=== PATIENT | female | born 2000 | race African-American/Black ===

== ENCOUNTER 2018-06-04 19:39 | Emergency (ER) | payer OTHER ==
[2018-06-04 20:41] LABS: ABS Basophils 0.1 10^3/ul (0-0.2); ABS Eosinophils 0.1 10^3/ul (0-0.6); ABS Lymphocytes 2.7 10^3/ul (1.0-4.8); ABS Monocytes 0.4 10^3/ul (0-0.8); ABS Neutrophils 7.9 10^3/ul (1.5-7.7); ABS Nucleated RBC 0 10^3/ul; Eosinophil % 0.8 % (0-6); Hematocrit 40 % (35-47); Hemoglobin 13.3 g/dl (12.0-16.0); Lymphocyte % 23.8 % (25-47); Mean Corpuscular HGB Conc 34 g/dl (31-36); Mean Corpuscular Hemoglobin 29 pg (27-31); Mean Corpuscular Volume 87 fL (80-97); Mean Platelet Volume 9.7 um3 (7.4-10.4); Nucleated Red Blood Cells % 0; Platelet Count 217 10^3/ul (150-450); Red Blood Count 4.56 10^6/ul (4.00-5.40); Red Cell Distribution Width 14 % (10.5-15); White Blood Count 11.2 10^3/ul (3.5-10.8)
[2018-06-04 20:59] LABS: EGFR Non-African American 76.7 (>60)
[2018-06-05 00:47] LABS: Urine Appearance Cloudy; Urine Blood 1+ (Negative); Urine Color Yellow; Urine Ketones Negative (Negative); Urine Protein Negative (Negative); Urine Red Blood Cell 1+(3-5/hpf) (Absent); Urine Specific Gravity 1.032 (1.010-1.030); Urine Urobilinogen Negative (Negative); Urine White Blood Cell 2+(11-20/hpf) (Absent)
--- NOTE | 2018-06-05 00:54 | ED ---
Abdominal Pain/Female - HPI Summary HPI Summary: Patient complains of intermittent right side and periumbilical abdominal pain 2 months with associated intermittent nausea. Pain is worse with standing up, improved with eating. Denies fever, cough, sore throat, CP, SOB, V/D, change in urine or BM, vaginal symptoms. Medical history is none. Abdominal/pelvic surgical history is none. Patient wants to know if she is as she has not had her menstrual period for 3 months, when she normally has regular periods. Denies history of ovarian cysts. - History of Current Complaint Chief Complaint: EDAbdPain Stated Complaint: ABD PAIN Time Seen by Provider: 06/04/18 23:46 Hx Obtained From: Patient Hx Last Menstrual Period: BEGINNING NOV Onset/Duration: Gradual Onset, Lasting Weeks Timing: Intermittent Episode Lasting Severity Initially: Mild Severity Currently: None Pain Intensity: 10 Pain Scale Used: 0-10 Numeric Location: Diffuse Radiates: No Character: Cramping Aggravating Factor(s): Movement Alleviating Factor(s): Other: - eating Associated Signs and Symptoms: Positive: Nausea Allergies/Adverse Reactions: Allergies Allergy/AdvReac Type Severity Reaction Status Date / Time No Known Allergies Allergy Verified 06/04/18 19:41 PMH/Surg Hx/FS Hx/Imm Hx Endocrine/Hematology History: Denies: Hx Anticoagulant Therapy Respiratory History: Denies: Hx Lung Cancer History: Denies: Hx Dialysis Neurological History: Denies: Hx CVA Infectious Disease History: No Infectious Disease History: Denies: Traveled Outside the [place] in Last 30 Days - Family History Known Family History: Positive: None, Respiratory Disease - family - Social History Alcohol Use: None Substance Use Type: Reports: None Smoking Status (MU): Never Smoked Tobacco Have You Smoked in the Last Year: No Review of Systems Constitutional: Negative Eyes: Negative ENT: Negative Cardiovascular: Negative Respiratory: Negative Positive: Abdominal Pain, Nausea Genitourinary: Negative Musculoskeletal: Negative Skin: Negative Neurological: Negative Psychological: Normal All Other Systems Reviewed And Are Negative: Yes Physical Exam - Summary Physical Exam Summary: Abdomen tender to palpation in periumbilical area and right upper quadrant. No tenderness to palpation in right lower quadrant or left lower quadrant or suprapubically. Triage Information Reviewed: Yes Vital Signs On Initial Exam: Initial Vitals Temp Pulse Resp BP Pulse Ox 99 F 96 15 117/84 100 06/04/18 19:41 06/04/18 19:41 06/04/18 19:41 06/04/18 19:41 06/04/18 19:41 Vital Signs Reviewed: Yes Appearance: Positive: Well-Appearing Skin: Positive: Warm Head/Face: Positive: Normal Head/Face Inspection Eyes: Positive: Normal Neck: Positive: Supple Respiratory/Lung Sounds: Positive: Clear to Auscultation Cardiovascular: Positive: Normal Abdomen Description: Positive: Soft. Negative: Distended, Guarding, [place]'s Point Tenderness, Peritoneal Signs Musculoskeletal: Positive: Normal Neurological: Positive: Normal Psychiatric: Positive: Normal AVPU Assessment: Alert - Sparks Coma Scale Best Eye Response: 4 - Spontaneous Best Motor Response: 6 - Obeys Commands Best Verbal Response: 5 - Oriented Coma Scale Total: 15 Diagnostics - Vital Signs Vital Signs Temp Pulse Resp BP Pulse Ox 06/04/18 21:58 98.5 F 68 15 119/74 100 06/04/18 19:41 99 F 96 15 117/84 100 - Laboratory Lab Results: Lab Results 06/04/18 06/04/18 06/04/18 Range/Units 20:32 20:32 23:56 WBC 11.2 H (3.5-10.8) 10^3/ul RBC 4.56 (4.00-5.40) 10^6/ul Hgb 13.3 (12.0-16.0) g/dl Hct 40 (35-47) % MCV 87 (80-97) fL MCH 29 (27-31) pg MCHC 34 (31-36) g/dl RDW 14 (10.5-15) % Plt Count 217 (150-450) 10^3/ul MPV 9.7 (7.4-10.4) um3 Neut % (Auto) 70.8 (38-83) % Lymph % (Auto) 23.8 L (25-47) % Hardy % (Auto) 3.9 (0-7) % Eos % (Auto) 0.8 (0-6) % Baso % (Auto) 0.7 (0-2) % Absolute Neuts (auto) 7.9 H (1.5-7.7) 10^3/ul Absolute Lymphs (auto) 2.7 (1.0-4.8) 10^3/ul Absolute Monos (auto) 0.4 (0-0.8) 10^3/ul Absolute Eos (auto) 0.1 (0-0.6) 10^3/ul Absolute Basos (auto) 0.1 (0-0.2) 10^3/ul Absolute Nucleated RBC 0 10^3/ul Nucleated RBC % 0 Sodium 140 (135-145) mmol/L Potassium 4.3 (3.5-5.0) mmol/L Chloride 107 (101-111) mmol/L Carbon Dioxide 26 (22-32) mmol/L Anion Gap 7 (2-11) mmol/L BUN 19 (6-24) mg/dL Creatinine 0.94 (0.51-0.95) mg/dL Est GFR ( Amer) 92.8 (>60) Est GFR (Non-Af Amer) 76.7 (>60) BUN/Creatinine Ratio 20.2 H (8-20) Glucose 99 (70-100) mg/dL Calcium 9.3 (8.6-10.3) mg/dL Total Bilirubin 0.30 (0.2-1.0) mg/dL AST 15 (13-39) U/L ALT 10 (7-52) U/L Alkaline Phosphatase 73 (34-104) U/L Total Protein 7.1 (6.4-8.9) g/dL Albumin 4.6 (3.2-5.2) g/dL Globulin 2.5 (2-4) g/dL Albumin/Globulin Ratio 1.8 (1-3) Beta HCG, Quant < 0.60 mIU/mL Urine Color Yellow Urine Appearance Cloudy Urine pH 5.0 (5-9) Ur Specific [place] 1.032 H (1.010-1.030) Urine Protein Negative (Negative) Urine Ketones Negative (Negative) Urine Blood 1+ A (Negative) Urine Nitrate Negative (Negative) Urine Bilirubin Negative (Negative) Urine Urobilinogen Negative (Negative) Ur Leukocyte Esterase 2+ A (Negative) Urine WBC (Auto) 2+(11-20/hpf) A (Absent) Urine RBC (Auto) 1+(3-5/hpf) A (Absent) Ur Squamous Epith Cells Present A (Absent) Urine Bacteria Absent (Absent) Urine Glucose Negative (Negative) Result Diagrams: 06/04/18 20:32 06/04/18 20:32 Lab Statement: Any lab studies that have been ordered have been reviewed, and results considered in the medical decision making process. Abdominal Pain Fem Course/Dx - Course Course Of Treatment: Patient complains of intermittent right side and periumbilical abdominal pain 2 months with associated intermittent nausea. Pain is worse with standing up, improved with eating. Denies fever, cough, sore throat, CP, SOB, V/D, change in urine or BM, vaginal symptoms. Medical history is none. Abdominal/pelvic surgical history is none. Patient wants to know if she is as she has not had her menstrual period for 3 months, when she normally has regular periods. Denies history of ovarian cysts. PE: Abdomen tender to palpation in periumbilical area and right upper quadrant. No tenderness to palpation in right lower quadrant or left lower quadrant or suprapubically. Vital signs normal and stable. White count 11.2, otherwise labs unremarkable. No active abdominal pain here in the ED. No menstrual period for 3 months. Advised follow up with [employer]ER patient understands improves her plan. UTI. Rx for Bactrim and started on Bactrim 1 tab here in the ED - Diagnoses Provider Diagnoses: Irregular menstrual cycle, Pain in the abdomen, UTI (urinary tract infection) Discharge - Sign-Out/Discharge Documenting (check all that apply): Patient Departure - Discharge Plan Condition: Stable Disposition: HOME Patient Education Materials: Abdominal Pain (ED) Referrals: Daja Rodriguez MD [Primary Care Provider] - Additional Instructions: Follow-up with your [employer]ACHINE [employer] T[employer]ER for irregular menstrual cycle and abdominal pain. Return to the ED for any new or worsening symptoms - Billing Disposition and Condition Condition: STABLE Disposition: Home
[2018-06-05] MEDS ORDERED: Sulfamethox/Trimethoprim DS 800/160* TAB PO ONE (01:05)
[2018-06-05 01:35] VITALS: BP 138/89
== END 2018-06-05 01:35 | disposition home or self-care (01) ==
LOC: ED 19:39
DX: N92.6 Irregular menstruation, unspecified (principal); R10.33 Periumbilical pain; N39.0 Urinary tract infection, site not specified
CPT/HCPCS: 36415; 80053; 81003; 81015; 84702; 85025; 87086; 99282; A9270-GY

== ENCOUNTER 2018-06-24 21:29 | Emergency (ER) | payer OTHER ==
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
[2018-06-24] MEDS ORDERED: NS 0.9% 1000 ML* 1,000 ML IV ONE (21:59)
[2018-06-24 22:10] LABS: ABS Basophils 0.1 10^3/ul (0-0.2); ABS Eosinophils 0.1 10^3/ul (0-0.6); ABS Lymphocytes 3.9 10^3/ul (1.0-4.8); ABS Monocytes 0.6 10^3/ul (0-0.8); ABS Neutrophils 7.4 10^3/ul (1.5-7.7); ABS Nucleated RBC 0 10^3/ul; Eosinophil % 1.2 % (0-6); Hematocrit 43 % (35-47); Lymphocyte % 32.2 % (25-47); Mean Corpuscular HGB Conc 33 g/dl (31-36); Mean Corpuscular Hemoglobin 29 pg (27-31); Mean Corpuscular Volume 88 fL (80-97); Mean Platelet Volume 9.6 um3 (7.4-10.4); Nucleated Red Blood Cells % 0; Platelet Count 224 10^3/ul (150-450); Red Blood Count 4.86 10^6/ul (4.00-5.40); Red Cell Distribution Width 14 % (10.5-15); White Blood Count 12.2 10^3/ul (3.5-10.8)
[2018-06-24 22:12] LABS: Urine Appearance Clear; Urine Blood 1+ (Negative); Urine Color Straw; Urine Ketones Negative (Negative); Urine Protein Negative (Negative); Urine Red Blood Cell Trace(0-2/hpf) (Absent); Urine Specific Gravity 1.011 (1.010-1.030); Urine Urobilinogen Negative (Negative); Urine White Blood Cell Trace(0-5/hpf) (Absent)
[2018-06-24 22:18] LABS: INR 0.98 (0.77-1.02)
[2018-06-24 22:28] LABS: EGFR Non-African American 76.7 (>60)
[2018-06-24] MEDS ORDERED: Ketorolac INJ* 30 MG/ML 1 ML VIAL IV PUSH ONE (23:31)
[2018-06-24 23:48] VITALS: BP 132/74
--- NOTE | 2018-06-25 07:36 | RAD ---
INDICATION: Left lower quadrant pain. COMPARISON: There are no prior studies available for comparison. TECHNIQUE: Multiple real-time transvaginal images of the pelvis were obtained. FINDINGS: The uterus is normal in size, shape and echogenicity. The uterus measured 7.7 x 3.1 x 4.6 cm. The endometrial echo measured 1.0 cm in thickness. The right ovary measured 4.2 x 2.2 x 2.1 cm. The left ovary measured 3.9 x 1.4 x 1.7 cm. There is vascular flow within both ovaries. No free intraperitoneal fluid is seen. IMPRESSION: NEGATIVE EXAM, NO EVIDENCE FOR OVARIAN TORSION.
== END 2018-06-24 23:47 | disposition home or self-care (01) ==
LOC: ED 21:29
DX: R10.32 Left lower quadrant pain (principal); F41.9 Anxiety disorder, unspecified
CPT/HCPCS: 36415; 76830; 80053; 81003; 81015; 83605; 83690; 83735; 84702; 85025; 85610; 86140; 87077; 87086; 87480; 87491; 87510; 87591; 87661; 96374; 99283

== ENCOUNTER 2019-11-21 01:43 | Emergency (ER) | payer OTHER ==
[2019-11-21 02:06] LABS: ABS Lymphocytes 2.4 10^3/ul (1.0-4.8); ABS Monocytes 0.5 10^3/ul (0-0.8); ABS Neutrophils 4.1 10^3/ul (1.5-7.7); Eosinophil % 0.2 %; Hematocrit 38 % (35-47); Hemoglobin 12.8 g/dL (12.0-16.0); Lymphocyte % 33.9 %; Mean Corpuscular HGB Conc 33 g/dL (31-36); Mean Corpuscular Hemoglobin 29 pg (27-31); Mean Corpuscular Volume 86 fL (80-97); Platelet Count 182 10^3/uL (150-450); Red Blood Count 4.48 10^6 /uL (3.70-4.87); Red Cell Distribution Width 14 % (10-15)
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
[2019-11-21] MEDS ORDERED: Morphine 4 MG/ML VIAL (1 ml) 4 MG/ML VIAL IM ONE (02:14)
[2019-11-21 02:23] LABS: ALT 12 U/L (7-52); AST 15 U/L (13-39); Albumin 4.7 g/dL (3.2-5.2); Albumin/Globulin Ratio 1.9 (1-3); Alkaline Phosphatase 70 U/L (34-104); Anion Gap 9 mmol/L (2-11); BUN/Creatinine Ratio 11.9 (8-20); Blood Urea Nitrogen 10 mg/dL (6-24); C Reactive Protein < 1.00 mg/L (<8.01); CO2 Carbon Dioxide 24 mmol/L (22-32); Calcium 9.3 mg/dL (8.6-10.3); Chloride 105 mmol/L (101-111); EGFR African American 103.6 (>60); EGFR Non-African American 85.6 (>60); Globulin 2.5 g/dL (2-4); Glucose 82 mg/dL (70-100); Potassium 3.7 mmol/L (3.5-5.0); Sodium 138 mmol/L (135-145); Total Protein 7.2 g/dL (6.4-8.9)
[2019-11-21 02:29] LABS: HCG Pregnancy < 0.60 mIU/mL
[2019-11-21 02:58] LABS: Urine Appearance Cloudy; Urine Bilirubin Negative (Negative); Urine Blood Negative (Negative); Urine Color Yellow; Urine Glucose Negative (Negative); Urine Ketones 2+ (Negative); Urine Nitrite Negative (Negative); Urine Protein Negative (Negative); Urine Specific Gravity 1.015 (1.010-1.030); Urine Urobilinogen Negative (Negative)
[2019-11-21 02:59] LABS: Urine Bacteria Absent (Absent); Urine Red Blood Cell Trace(0-2/hpf) (Absent); Urine Squamous Epithelial Cell Present (Absent); Urine White Blood Cell Trace(0-5/hpf) (Absent)
[2019-11-21] MEDS ORDERED: cefTRIAXone VIAL(*) 250 MG VIAL IM ONE (04:34)
[2019-11-21] MEDS ORDERED: Lidocaine 1% MPF ** 5 ML VIAL IM ONE (04:34)
[2019-11-21] MEDS ORDERED: DOXYcycline CAP(*) 100 MG PO ONE (04:35)
[2019-11-21 05:44] VITALS: BP 143/100
[2019-11-21 13:49] LABS: Chlamydia trachomatis NAA Positive (Negative); Neisseria gonorrhoeae (GC) NAA Negative (Negative)
--- NOTE | 2019-11-21 16:37 | ED ---
Imaging and Labs Follow Up Follow Up Type: Labs/Cultures Labs/Culture Result: MELYSSA limited her culture obtained during last visit returned positive for chlamydia Patient Communication/Plan: Patient was called at 1634 this date and informed of positive chlamydia results. She was told to finish her doxycycline and to refrain from sexual intercourse for one week after completing antibiotic therapy. She is also urged to have her sexual partners tested for possible chlamydia as well. Patient had no questions and agreed with this plan. Pt treated appropriately. Provider Diagnoses: PID (pelvic inflammatory disease)
== END 2019-11-21 05:10 | disposition home or self-care (01) ==
LOC: ED 01:43
DX: N73.9 Female pelvic inflammatory disease, unspecified (principal); Z88.0 Allergy status to penicillin; F17.200 Nicotine dependence, unspecified, uncomplicated
CPT/HCPCS: 36415; 80053; 81003; 81015; 83690; 84702; 85025; 86140; 87086; 87491; 87591; 96372; 99283; A9270-GY; J0696; J2270

== ENCOUNTER 2021-05-16 16:20 | Inpatient (IN) ==
[2021-05-16] MEDS: NS 0.9% 1000 ml BAG 1,000 ML IV ONE ×2 (16:49→17:26)
[2021-05-16 17:10] LABS: ALT 14 U/L (7-52); AST 24 U/L (13-39); Albumin 3.3 g/dL (3.2-5.2); Albumin/Globulin Ratio 0.9 (1-3); Alkaline Phosphatase 148 U/L (35-149); Anion Gap 12 mmol/L (2-11); Blood Urea Nitrogen 15 mg/dL (6-24); CO2 Carbon Dioxide 20 mmol/L (22-32); Calcium 8.6 mg/dL (8.6-10.3); Chloride 98 mmol/L (101-111); EGFR African American 84.9 (>60); EGFR Non-African American 70.1 (>60); Globulin 3.6 g/dL (2-4); Glucose 140 mg/dL (70-100); Sodium 130 mmol/L (135-145); Total Protein 6.9 g/dL (6.4-8.9)
[2021-05-16 17:11] LABS: Hematocrit 41 % (35-47); Hemoglobin 13.8 g/dL (12.0-16.0); Mean Corpuscular HGB Conc 34 g/dL (31-36); Mean Corpuscular Hemoglobin 28 pg (27-31); Mean Corpuscular Volume 85 fL (80-97); Red Blood Count 4.86 10^6 /uL (3.70-4.87); Red Cell Distribution Width 15 % (10-15); White Blood Count 21.4 10^3/uL (3.5-10.8)
[2021-05-16 17:13] LABS: HCG Pregnancy < 0.60 mIU/mL
[2021-05-16 17:25] LABS: ABS Lymphocytes 0.8 10^3/ul (1.0-4.8); ABS Monocytes 1.2 10^3/ul (0-0.8); ABS Neutrophils 19.4 10^3/ul (1.5-7.7); Lymphocyte % 3.8 %; Mean Platelet Volume 11.2 fL (7.4-10.4); Platelet Count 98 10^3/uL (150-450)
[2021-05-16] MEDS ORDERED: Potassium Chlor 20 meq TAB.ER PO ONE (17:30)
[2021-05-16] MEDS ORDERED: NS 0.9% 1000 ml BAG 1,000 ML IV ONE ×3 (17:35→22:10)
[2021-05-16 19:18] LABS: Troponin I 0.02 ng/mL (<0.03)
[2021-05-16 19:19] LABS: Urine Benzodiazepine Screen None Detected (None Detect); Urine Cannabinoids Screen Presumptive Positive (None Detect); Urine Opiates Screen None Detected (None Detect)
[2021-05-16 20:57] LABS: Free T4 0.76 ng/dL (0.61-1.12)
[2021-05-16 21:08] LABS: Urine Appearance Cloudy; Urine Bilirubin Negative (Negative); Urine Blood 3+ (Negative); Urine Color Amber; Urine Glucose Negative (Negative); Urine Ketones Negative (Negative); Urine Nitrite Negative (Negative); Urine Protein 2+(100 mg/dL) (Negative); Urine Specific Gravity 1.018 (1.002-1.030); Urine Urobilinogen Positive (Negative)
[2021-05-16 21:13] LABS: Urine Bacteria 1+ (Absent); Urine Red Blood Cell 3+(>10/hpf) (Absent); Urine Squamous Epithelial Cell Present (Absent); Urine White Blood Cell 2+(11-20/hpf) (Absent)
[2021-05-16] MEDS ORDERED: Diltiazem IV push/loading dose 5 MG/ML 5 ML vial (25 mg) IV SLOW PU ONE (21:18)
[2021-05-16] MEDS ORDERED: Levofloxacin 500 MG IVPREMIX 500 MG/100 ML BAG IV ONE (21:19)
[2021-05-16] MEDS ORDERED: Magnesium Sulfate IV 1GM/100ML 1 GM/100 ML BAG IV ONE (22:07)
[2021-05-16] MEDS ORDERED: Enoxaparin 40 MG/0.4 ML SYR SUBCUT SCH (23:00)
[2021-05-16] MEDS ORDERED: NS 0.9% 1000 ml BAG 1,000 ML IV SCH (23:00)
[2021-05-16] MEDS ORDERED: Iohexol 350 (CONTRAST) 500 ML MDV IV ONE (23:48)
[2021-05-17] MEDS ORDERED: Vancomycin 1,000 MG in NS 0.9% 250 ml 250 ML IVPB ONE (00:58)
[2021-05-17] MEDS ORDERED: Vancomycin per Pharmacy 1 EA NOTE FOLLOW UP SCH (01:00)
[2021-05-17] MEDS ORDERED: Vancomycin 1,250 MG in NS 0.9% 250 ml 250 ML IVPB ONE (01:14)
[2021-05-17] MEDS ORDERED: cefTRIAXone 1 gm/50 mL NS BAG 1 GM/50 ML BAG IVPB SCH (02:00)
[2021-05-17] MEDS ORDERED: DOXYcycline 100 MG in NS 0.9% 250 ml 250 ML IVPB SCH (02:30)
[2021-05-17 02:55] LABS: C Reactive Protein 261.28 mg/L (<8.01)
[2021-05-17 05:38] LABS: ABS Lymphocytes 0.8 10^3/ul (1.0-4.8); ABS Monocytes 1.1 10^3/ul (0-0.8); ABS Neutrophils 11.1 10^3/ul (1.5-7.7); Eosinophil % 0.3 %; Hematocrit 31 % (35-47); Hemoglobin 10.7 g/dL (12.0-16.0); Lymphocyte % 6.1 %; Mean Corpuscular HGB Conc 35 g/dL (31-36); Mean Corpuscular Hemoglobin 29 pg (27-31); Mean Corpuscular Volume 85 fL (80-97); Mean Platelet Volume 10.5 fL (7.4-10.4); Platelet Count 56 10^3/uL (150-450); Red Blood Count 3.64 10^6 /uL (3.70-4.87); Red Cell Distribution Width 15 % (10-15); White Blood Count 13.1 10^3/uL (3.5-10.8)
[2021-05-17 05:42] LABS: Calcium 7.4 mg/dL (8.6-10.3); Potassium 3.1 mmol/L (3.5-5.0)
[2021-05-17] MEDS ORDERED: Potassium Chlor 20 meq TAB.ER PO ONE (06:04)
[2021-05-17] MEDS: KCL 20 MEQ/100 ML IVPREMIX 20 MEQ/100 ML BAG IV SCH ×2 (07:37→10:28)
[2021-05-17 08:50] LABS: Activated Partial Thrombo Time 45.9 seconds (26.0-38.0); INR 4.98 (0.82-1.09)
[2021-05-17 10:25] LABS: Schistocytes ABSENT
[2021-05-17 10:27] LABS: Platelet Count 56 10^3/ul (150-450)
[2021-05-17] MEDS ORDERED: Vancomycin 1000 MG in NS 0.9% 250 ML IVPB SCH (10:30)
[2021-05-17 10:44] LABS: Activated Partial Thrombo Time 46.3 seconds (26.0-38.0); Fibrinogen 567.8 mg/dL (110.8-404.3); INR 4.53 (0.82-1.09)
[2021-05-17 15:44] LABS: ABS Basophils 0.1 10^3/ul (0-0.2); ABS Eosinophils 0.1 10^3/ul (0-0.6); ABS Lymphocytes 0.8 10^3/ul (1.0-4.8); ABS Monocytes 1.1 10^3/ul (0-0.8); ABS Neutrophils 13.6 10^3/ul (1.5-7.7); Eosinophil % 0.7 %; Hematocrit 33 % (35-47); Hemoglobin 10.9 g/dL (12.0-16.0); Lymphocyte % 4.8 %; Mean Corpuscular HGB Conc 33 g/dL (31-36); Mean Corpuscular Hemoglobin 28 pg (27-31); Mean Corpuscular Volume 84 fL (80-97); Mean Platelet Volume 10.7 fL (7.4-10.4); Platelet Count 65 10^3/uL (150-450); Red Blood Count 3.86 10^6 /uL (3.70-4.87); Red Cell Distribution Width 15 % (10-15); White Blood Count 15.6 10^3/uL (3.5-10.8)
[2021-05-17] MEDS ORDERED: NS 0.9% 1000 ml BAG 1,000 ML IV SCH (15:56)
[2021-05-17 17:07] VITALS: BP 161/78
[2021-05-18] MEDS ORDERED: Vancomycin Trough Check NOTE FOLLOW UP ONE (10:00)
== END 2021-05-17 17:45 | disposition short-term general hospital (02) | DRG 720 ==
LOC: MEDTELE 16:20 → ED 16:20 → MEDTELE 05-17 01:15
PROVIDERS: ADMIT Internal Medicine; ATTEND Internal Medicine